=== PATIENT | male | born 1995 | race Caucasian/White ===

== ENCOUNTER → 2018-08-05 12:12 | Outpatient (CLI) | payer OTHER, MEDICAID, SELFPAY ==
--- NOTE | 2018-08-05 | DI.RAD.S_ITS ---
PROCEDURE: XR HIP W PEL IF DONE LT 2V INDICATIONS: LEFT HIP PAIN TECHNIQUE: 2 views of the hip were acquired. COMPARISON: None. FINDINGS: Bones: No fractures or dislocations. No suspicious bony lesions. The visualized pelvic ring appears intact. Soft tissues: No suspicious soft tissue calcifications or masses. IMPRESSION: Unremarkable radiographic examination of pelvis and left hip. Dictated by: Maxi Rivera M.D. on 08/05/2018 at 13:27 Approved by: Maxi Rivera M.D. on 08/05/2018 at 13:27
== END ==
PROVIDERS: Family Provider Family Medicine; PCP Family Medicine; Visit Provider Family Medicine
DX: M25.552 Pain in left hip (principal)
CPT/HCPCS: 73502

== ENCOUNTER → 2020-10-18 16:23 | Outpatient (CLI) | payer OTHER, SELFPAY ==
[2020-10-18 18:01] LABS: Total Iron Binding Capacity 306 ug/dL (261-462)
[2020-10-18 18:29] LABS: Ferritin 48 ng/mL (18-464)
== END ==
PROVIDERS: PCP Family Medicine; Referring Provider Family Medicine; Visit Provider Family Medicine
DX: Z00.00 Encounter for general adult medical examination without abnormal findings (principal)
CPT/HCPCS: 36415; 82728; 83550

== ENCOUNTER → 2022-07-26 08:19 | Outpatient (CLI) | payer OTHER, SELFPAY | PROVIDERS: PCP Family Medicine; Visit Provider Student in an Organized Health Care Education/Training Program | DX: L03.019 Cellulitis of unspecified finger (principal) | CPT/HCPCS: 87070; 87147; 87205 ==